=== PATIENT | male | born 1975 | race Two or more races ===

== ENCOUNTER 2017-04-17 16:52 | Emergency (ER) | payer BC, OTHER ==
[~2017-04-17] VITALS: Ht 172.7 cm; Wt 87.9 kg
[~2017-04-17 16:52] MED LIST: OMEG1CAP6 PO
[2017-04-17] MEDS ORDERED: ESCI10TA10 PO (17:25)
[2017-04-17 17:36] LABS: HEMATOCRIT 44.3 % (39.2-51.8); HEMOGLOBIN 15.1 g/dL (13.7-18.0); WHITE BLOOD COUNT 8.8 x10^3/uL (3.4-10)
[2017-04-17 17:47] LABS: BLOOD UREA NITROGEN 20 mg/dL (7-18)
[2017-04-17 17:53] LABS: IS PT STATUS REG ER OR PRE ER? YES
[2017-04-17] MEDS ORDERED: DILTIAZEM 5 MG/ML, 5ML ONE (17:56)
[2017-04-17] MEDS ORDERED: DILTIAZEM 5 MG/ML, 5ML IVPush ONE (18:00)
[2017-04-17] MEDS ORDERED: RIVAROXABAN 15 MG TABLET PO SCH (18:00)
[2017-04-17 19:45] VITALS: BP 110/69
== END 2017-04-17 19:46 | disposition home or self-care (01) ==
LOC: ED 18:54
DX: I48.91 Unspecified atrial fibrillation (principal)
CPT/HCPCS: 36415; 71010; 80048; 82040; 84484; 85025; 93005; 96374

== ENCOUNTER → 2017-08-09 | Outpatient (CLI) | payer OTHER ==
[~2017-08-09] MED LIST changes: +ESCI10TA10 PO
== END | disposition home or self-care (01) ==
LOC: CFH 09:48
PROVIDERS: ATTEND Internal Medicine Cardiovascular Disease
DX: I48.91 Unspecified atrial fibrillation (principal)
CPT/HCPCS: 93306